=== PATIENT | male | born 1955 | race Caucasian/White ===

== ENCOUNTER → 2021-12-05 | Day surgery (SDC) | payer OTHER ==
[~2021-12-05] VITALS: Ht 175.3 cm; Wt 113.4 kg
[~2021-12-05] MED LIST: AZELASTIN-FLUTI23 GM NARES; FLOMAX0.4 MG PO; FLONASE 0.05%50 MCG NARES
[2021-12-05 12:54] VITALS: BP 135/91
[2021-12-05 17:31] VITALS: BP 135/91
--- NOTE | 2021-12-06 11:28 | O ---
[address] [address] OPERATIVE REPORT Name: NATI MONTENEGRO Room #: REG [facility]..#: [id number] Admission: 12/05/21 Attend Phys: Will Gonzalez MD Discharge: Date of : 59 Report #: [id number] THIS REPORT FOR: cc: Cristiano Cali Louis D. DO McCabe, Michael P. MD ~ DATE OF SERVICE: 12/05/2021 SERVICE: Orthopedics. FACILITY: [facility]. SURGEON: Will Gonzalez MD ELECTRIC MOTOR TESTER ASSEMBLER: Wendy Lima. INDICATIONS FOR ELECTRIC MOTOR TESTER ASSEMBLER: Retraction, assistance with exposure and repair and closure. PREOPERATIVE DIAGNOSES: 1. Right hamstring/buttock pain. 2. Status post right proximal hamstring tendon rupture repair. 3. Right proximal hamstring tendon rerupture. 4. Possible deep space infection, right hip/pelvis. POSTOPERATIVE DIAGNOSES: 1. Right hamstring/buttock pain. 2. Status post right proximal hamstring tendon rupture repair. 3. Right proximal hamstring tendon rerupture. PROCEDURE PERFORMED: 1. Irrigation and debridement with open exploration, right proximal hamstring and deep orthopedic implant removal. 2. Revision proximal hamstring tendon rupture repair. COMPLICATIONS: None. DRAINS: None. SPECIMENS: 1. Culture swab for aerobic, anaerobic, fungal and AFB cultures x 2. 2. Suture anchor from previous repair removed in total and sent for culture. ESTIMATED BLOOD LOSS: 50 mL. FINDINGS: [address] [place] [address] OPERATIVE REPORT Name: NATI MONTENEGRO Room #: REG [facility].#: [id number] Admission: 12/05/21 Attend Phys: Will Gonzalez MD Discharge: Date of : 59 Report #: [id number] 1. No purulence, necrosis or evidence of osteomyelitis. 2. Revision repair with Keena [place] suture anchor with 1.4 mm suture tape x 2 yielding 4 limbs total. HISTORY: The patient is a 66-year-old gentleman who sustained a fall at work in the fall of 2020 and ruptured his right proximal hamstring. At that time, he was indicated for surgical repair, which was performed and initial recovery was uneventful and successful endoscopic repair was achieved; however, he was having pain in the proximal hamstring/buttock region and was reporting subjective malaise and fevers and his primary care physician was concerned about a deep space infection. She ordered an MRI which was read as findings that were concerning for deep space infection as well as a rupture of the previous proximal hamstring tendon repair. These results were forwarded to the orthopedic team. Upon receipt, I consulted with the patient and we elected to obtain repeat labs in addition to planning for surgical irrigation and drainage and exploration of the previous repair site. He was having continued subjective fevers and chills and was noting pain with pressure on the ischium region. With the appearance and report on the MRI, I felt that the possibility of a persistent ongoing infection was a significant enough concern that it warranted definitive answers. We obtained repeat labs and these were all normal and were in favor of a noninfectious etiology of the pain and most likely a traumatic rupture of the repair. I discussed this in detail with the patient and he had eventually come to a decision that he would like to pursue revision repair in the event that there was not an infection in the hip at the site of the previous proximal hamstring repair. Risks, benefits, alternatives and indications for this second surgery were discussed with him in detail and he gave full informed consent. Risks include but not limited to pain, bleeding, infection, injury to nerves or blood vessels including sciatic nerve, failure of any revision repair, need for further surgery as well as complications related to anesthesia. Despite the risks, he wished to proceed. PROCEDURE IN DETAIL: After the right lower extremity/hamstring region was identified as the operative extremity, the patient was taken to the operating room where general anesthesia was induced without complication. He was then turned into the prone position, padded appropriately. Antibiotics were withheld until after cultures were taken. The right hip was prepped and draped in standard sterile fashion. Timeout procedure was performed. The previous 4 portal incisions from the endoscopic proximal hamstring repair were very healthy in appearance. There was no redness, warmth or swelling. There was no outward evidence of a deep space infection. A transverse incision was made in the subgluteal fold utilizing 2 of the previous portal sites. Hemostasis was achieved in exposure. Dissection was taken down through the subcutaneous fat to the gluteus mirna muscle and then the hamstring tendon was visualized. The dissection was carried down deep until the vicinity of the [address] [address] OPERATIVE REPORT Name: NATI MONTENEGRO Room #: REG [facility]#: [id number] Admission: 12/05/21 Attend Phys: Will Gonzalez MD Discharge: Date of : 59 Report #: [id number] previous proximal hamstring repair was encountered. There was no purulence. There was no foul odor. There was no discoloration, necrosis or evidence of any acute or chronic infection. Upon entering the deep space at the side of the repair, I took 2 sets of culture swabs, the first was at the level of the proximal hamstring, the second was at the level of the ischium. During the exposure, the proximal hamstring tendon could be palpated that was encased within the scar tissue and it had avulsed from the repair site. The previous 2 Keena Iconix suture anchors were palpated within the wound and then removed with a rongeur in total. The entire 2 suture anchor triple-loaded constructs were removed without any remnant within the bone. The knots were still tied, essentially the hamstring had avulsed from the ischium and pulled the anchors free with some small bone fragments that were present as well. There was scarring and early fibrosis over the ischium at the site of the avulsion, but with gentle debridement the exposed cancellous bone was visualized and palpated. The sutures that were removed from the hip were sent for culture as well. I proceeded to dissect the previous repair tissue. This had become rather fibrotic and friable and was largely debrided with the rongeur. There was some residual musculotendinous junction and tendon tissue that was still seeming to be viable for repair, so I elected to repair both segments of the proximal hamstring tendons utilizing the 1.4 mm Keena SutureTape. I was careful to palpate the sciatic nerve and retracted bluntly anteriorly and laterally away from the hamstring muscle. After the tendon was dissected free, I then performed a modified Krackow-type suture and modified whipstitch-type suture on the proximal hamstrings x 2. This yielded a total of 4 suture limbs that were exiting on the proximal hamstring at the musculotendinous junction and into the proximal hamstring tissue itself after preparation of the ischial bone bed with a Machado elevator to debride the soft tissues. I then placed the Keena [place] suture anchor eyelet. This was seated securely into the ischium with the 4 limbs passed through and then the back of interference screw fixation was placed as well after the sutures were adequately tensioned in the bone. The tendon was drawn against the ischium and well approximated at this point and then the suture tails were cut. We did perform a thorough irrigation after the debridement had been performed with digital and visual inspection of all tissue planes to ensure that there was in fact no evidence of infection. After the repair was completed, the knee was flexed and extended, secure repair was achieved. The skin layer was closed with 2-0 Vicryl followed by running subcuticular 3-0 Monocryl and then Dermabond was applied for watertight closure. The patient was awakened from anesthesia, turned supine and taken to recovery room in stable condition. There were no complications. All counts were reported correct. POSTOPERATIVE PLAN: Will be toe-touch weightbearing to the right lower extremity for 6 weeks. There are no plans for parenteral antibiotics as there [address] [address] OPERATIVE REPORT Name: NATI MONTENEGRO Room #: REG [facility] [place] M.R.#: [id number] Admission: 12/05/21 Attend Phys: Will Gonzalez MD Discharge: Date of : 59 Report #: [id number] does not appear to be any evidence of a deep infection. We will await final cultures in determining the ultimate plan from that standpoint, however. <ELECTRONICALLY SIGNED> By: Will Gonzalez MD 12/06/21 1128 11 58 Will Gonzalez MD /nt
== END | disposition home or self-care (01) ==
LOC: OR 07:54
PROVIDERS: ATTEND Orthopaedic Surgery Sports Medicine
DX: M25.551 Pain in right hip (principal); S76.011A Strain of muscle, fascia and tendon of right hip, initial encounter; Z98.890 Other specified postprocedural states; Z20.822 Contact with and (suspected) exposure to COVID-19; Z79.899 Other long term (current) drug therapy; Z88.0 Allergy status to penicillin; Z91.041 Radiographic dye allergy status; X58.XXXA Exposure to other specified factors, initial encounter; Y93.89 Activity, other specified; Y99.8 Other external cause status; Y92.89 Other specified places as the place of occurrence of the external cause
CPT/HCPCS: 50010; 50101; 50386; 50403; 54118; 56527; 56528; 59076; 59144; 62110; 62900; 70005